=== PATIENT | female | born 1990 | race Caucasian/White ===

== ENCOUNTER 2018-11-10 21:52 | Emergency (ER) | payer OTHER ==
[~2018-11-10] VITALS: Ht 154.9 cm; Wt 100.0 kg
[2018-11-10] MEDS ORDERED: NS 1,000 ML IV ONE (23:00)
[2018-11-10] MEDS ORDERED: ISOVUE-370 76% 100ML VIAL (Q9967) As Ordered ONE (23:24)
[2018-11-10 23:25] LABS: BASO % 0.3 % (0.0-1.0); EOS # 0.3 10^3/uL (0.0-0.50); EOS % 1.8 % (0.0-3.0); HEMOGLOBIN 13.3 g/dl (12.0-15.5); LYMPH # 4.2 10^3/uL (1.5-6.5); LYMPH % 28.4 % (24.0-44.0); MEAN CORPUSCULAR HEMOGLOBIN 29.4 pg (27.0-33.0); MEAN CORPUSCULAR HGB CONC 33.3 g/dl (32.0-36.5); MEAN CORPUSCULAR VOLUME 88.3 fl (80.0-96.0); MONO # 0.8 10^3/uL (0.0-0.8); MONO % 5.6 % (0.0-5.0); NEUTROPHILS # 9.4 10^3/uL (1.8-7.7); NEUTROPHILS % 63.5 % (36.0-66.0); PLATELET COUNT, AUTOMATED 360 10^3/uL (150-450); RED BLOOD COUNT 4.53 10^6/uL (4.00-5.40); WHITE BLOOD COUNT 14.8 10^3/uL (4.0-10.0)
[2018-11-10 23:45] LABS: ALBUMIN 4.3 GM/DL (3.2-5.2); ALT/SGPT 107 U/L (12-78); BILIRUBIN,TOTAL 0.2 MG/DL (0.2-1.0); BLOOD UREA NITROGEN 13 MG/DL (7-18); CALCIUM LEVEL 9.4 MG/DL (8.5-10.1); CARBON DIOXIDE LEVEL 27 MEQ/L (21-32); CHLORIDE LEVEL 106 MEQ/L (98-107); GLOMERULAR FILTRATION RATE > 60.0 (>60); GLUCOSE, FASTING 100 MG/DL (70-100); LIPASE 125 U/L (73-393); POTASSIUM SERUM 4.5 MEQ/L (3.5-5.1); SODIUM LEVEL 142 MEQ/L (136-145); TOTAL PROTEIN 7.9 GM/DL (6.4-8.2)
[2018-11-10] MEDS ORDERED: ONDANSETRON 4 MG ORAL DISINTEGRATING TAB (Q0162 PER 1MG) PO ONE (23:45)
--- NOTE | 2018-11-11 01:14 | REPVR ---
EXAM: CT Abdomen and Pelvis With Contrast EXAM DATE/TIME: 11/10/2018 10:46 PM CLINICAL HISTORY: 28 years old, female; Pain; Abdominal pain; Generalized; Prior surgery; Surgery date: <1 month; Surgery type: G bypass; Additional info: No bm x 1 week/vomiting/sp gastric bypass TECHNIQUE: Axial computed tomography images of the abdomen and pelvis with intravenous contrast. All CT scans at this facility use at least one of these dose optimization techniques: automated exposure control; mA and/or kV adjustment per patient size (includes targeted exams where dose is matched to clinical indication); or iterative reconstruction. Coronal and sagittal reformatted images were created and reviewed. CONTRAST: Contrast Material: 100 ml of iso; Contrast Route: ac COMPARISON: No relevant prior studies available. FINDINGS: Lower thorax: No acute findings. ABDOMEN: Liver: Normal. No mass. Gallbladder and bile ducts: Normal. No calcified stones. No ductal dilation. Pancreas: Normal. No ductal dilation. Spleen: Normal. No splenomegaly. Adrenals: Normal. No mass. Kidneys and ureters: Normal. No hydronephrosis. Stomach and bowel: Status post gastric bypass surgery. Dilated small bowel. Transition point in the right upper quadrant near the enteroenteric anastomosis. Distal small bowel loops are decompressed. Moderate stool in the throughout the colon. Focal thickening of the mid right colon. Appendix: Status post appendectomy. PELVIS: Bladder: Unremarkable as visualized. Reproductive: Uterus is normal. ABDOMEN and PELVIS: Intraperitoneal space: Tiny free fluid in the pelvis. No free air. Bones/joints: No acute fracture. No dislocation. Soft tissues: There is dependent subcutaneous edema. Vasculature: Normal. No abdominal aortic aneurysm. Lymph nodes: Normal. No enlarged lymph nodes. Multiple small mesenteric nodes. IMPRESSION: Status post gastric bypass surgery. Findings consistent with high-grade partial versus complete small bowel obstruction. Transition point near the enteroenteric anastomosis. Focal thickening of the mid right colon. Possible peristaltic contraction versus malignancy versus colitis. No evidence of bowel perforation. Additional findings as described. Electronically signed by: Mercy Ruth On 11/11/2018 01:14:33 AM
[2018-11-11] MEDS ORDERED: BISACODYL 10 MG SUPP PR ONE (02:15)
[2018-11-11] MEDS ORDERED: MULTIVITAMIN -ADULT INJECTION 10 ML, THIAMINE INJection 100 MG, FOLIC ACID 1 MG in NS 1... IV ONE (02:15)
[2018-11-11 02:51] VITALS: BP 122/56
== END 2018-11-11 03:02 | disposition short-term general hospital (02) ==
LOC: M ED 21:52
DX: K56.609 Unspecified intestinal obstruction, unspecified as to partial versus complete obstruction (principal)
CPT/HCPCS: 74177; 80053; 81001; 81025; 83690; 85025; 87088; 87186; 96361; 96374; 99284; J3411; Q9967